=== PATIENT | female | born 2000 | race Caucasian/White ===

== ENCOUNTER 2023-08-23 09:26 | Emergency (ER) | payer BC, SELFPAY ==
[2023-08-23 09:34] VITALS: BP 152/80; PULSE 77; RESP 18; O2SAT 97
--- NOTE | 2023-08-23 09:43 | W.ED.GENAD ---
Discharge Plan Disposition Patient Disposition: Home Discharge Details Clinical Impression: Abnormal vaginal bleeding, Microcytic anemia Primary Care Provider: Unknown,Unknown ED Provider: Manohar Pike Home Meds and New Rx's Prescriptions: New ferrous sulfate [Iron (ferrous sulfate)] 325 mg (65 mg iron) tablet 325 mg PO DAILY Qty: 30 0RF Continued buspirone 7.5 mg Tablet 7.5 mg PO BID Discharge Instructions Instructions: Anemia (ED) Additional Instructions: You were seen in the emergency department for your vaginal bleeding. Your blood counts show that you are mildly anemic. You are receiving a prescription for an iron supplement which you should take as directed. The radiology team also noted a possible polyp versus a blood clot on your ultrasound for which they advise repeating your ultrasound when you are not on your menstrual cycle. This can be arranged through your primary care when you return home. Please return to the emergency department if you do are bleeding more than 1 pad per hour if you pass out or if you have any other concerns. Discharge Data Discharge Date/Time-TO BE ENTERED AT DEPARTURE: 08/23/23 13:45 HPI General Date/Time Provider Initiated Documentation: 08/23/23 09:39. HPI Narrative: HPI This is a 23-year-old female on outpatient medroprogesterone from a primary care provider in [place] now in the ED in the setting of heavy vaginal bleeding. Patient reports that she has had a constant left lower quadrant cramping sensation for the past month. She says that she has had occasional diarrhea. She remotely has had a cholecystectomy. She has not been vomiting but she has been nauseous. She is sexually active with a single male partner. She denies abnormal vaginal discharge dysuria and frequency. No prior history of sexually transmitted infections. No fevers chills chest pain or shortness of breath. No history of PE nor DVT. Bleeding has reportedly improved in the past week on medroprogesterone. Using less than a pad every two hours. Some clots. Attending college in [place], [place]. Exam General: Well-appearing in no acute distress speaking in complete sentences. Head: Normocephalic, atraumatic. Eye: Extraocular eye movements intact. No conjunctival injection. No scleral icterus. Ear, nose, mouth, throat: Grossly normal inspection. Normal voice, handling secretions normally. Neck: Trachea midline. Cardiovascular: Well-perfused distal extremities. Regular rate and rhythm. Respiratory: Nonlabored respiration. Clear lungs bilaterally. Gastrointestinal: Nondistended abdomen. Soft minimal left lower quadrant tenderness. Musculoskeletal: No edema. Moving all 4 extremities spontaneously. Skin: Normal for age and race, grossly normal temperature and turgor. No acute rash. Neurologic: Alert and appropriate, no apparent acute deficits. Psychiatric: Mood and manner are appropriate. Grooming and personal hygiene are appropriate. MDM This is an overall very well-appearing normothermic and not tachycardic 23-year-old female with persistent vaginal bleeding despite outpatient oral hormone use concerning for the possibility of acute blood loss anemia. She also has left lower quadrant tenderness concerning for the possibility of an ovarian cyst. Given her mild pain and overall well appearance my suspicion for ovarian torsion is exceedingly low. However torsion is certainly still a possibility and given concern for cyst will obtain formal transvaginal ultrasound. Will obtain CBC to assess for anemia and send type and screen. No right lower quadrant tenderness to suggest appendicitis and no fevers. Patient has no significant left lower quadrant tenderness making my suspicion for diverticulitis low based on the patient's age so I do not feel that she requires a CT scan. Patient is not recently nor does she have left upper quadrant tenderness to suggest increased risk for splenic arterial aneurysm. No rash to abdomen to suggest zoster. No abnormal vaginal discharge to suggest PID and patient has not been sexually active with any new partners. No dysuria no frequency doubt UTI. No flank pain no history of ureterolithiasis so doubt ureterolithiasis. No fevers to suggest pyleo. Patient denies chance that she could be however will obtain serum hCG to ensure that she does not have an ectopic. 11:18 AM CBC with mild microcytic anemia. Negative hCG. Basic metabolic panel reassuring no prior for comparison. No acute electrolyte abnormalities beyond very mild hyponatremia. No leukocytosis. No thrombocytopenia. 1:32 PM I spoke with Dr. Oseguera from [facility] who reviewed the patient's ultrasound as she was found to have a mass in her endometrial cavity suspicious for a polyp but also possibly consistent with a blood clot. Dr. Oseguera felt that this certainly could represent a blood clot and she agreed with plan for repeat ultrasound in 6 weeks. I will pass along this finding to the patient and give her return indications for any bleeding of more than a pad an hour or any syncope. I wrote her for a course of oral iron supplementation. No significant bleeding reported in the ED. No syncope. Chronic conditions affecting the care of the patient: Heavy periods History obtained from an outside historian: Patient's male partner External record review: No [facility] [place] EMR records Medications: N/A Social determinants of health affecting disposition: N/A Management discussed with: OB and radiology Treatment/interventions considered: N/A Response to therapies provided: N/A Related Data Home Medications Medication Instructions Recorded Confirmed buspirone 7.5 mg tablet 7.5 mg PO BID 08/23/23 08/23/23 ferrous sulfate 325 mg (65 mg 325 mg PO DAILY #30 tabs 08/23/23 iron) tablet (Iron (ferrous sulfate)) Previous Rx's Medication Instructions Recorded ferrous sulfate 325 mg (65 mg 325 mg PO DAILY #30 tabs 08/23/23 iron) tablet (Iron (ferrous sulfate)) Allergies Allergy/AdvReac Type Severity Reaction Status Date / Time No Known Allergies Allergy Unverified 08/23/23 09:37 General Stated Complaint: [facility] [employer] RICK: 3 PFSH All Active Problems (Updated 08/23/23 @ 11:20 by Manohar Pike MD) Abnormal vaginal bleeding (Acute) Microcytic anemia (Acute) Social History Smoking/Tobacco Use Status: Never Smoking risk assessment performed?: Yes Alcohol Intake: current Alcohol Intake frequency: a few times a month Housing: apartment Do you feel safe at home: Yes Do you feel safe in your relationship?: Yes Additional Social history: unable to answer alone Course Vital Signs Vital signs: Vital Signs Pulse 77 08/23/23 09:34 Respiratory Rate 18 08/23/23 09:34 Blood Pressure 152/80 H 08/23/23 09:34 Pulse Oximetry 97 08/23/23 09:34 Pulse 77 08/23/23 09:34 Respiratory Rate 18 08/23/23 09:34 Blood Pressure 152/80 H 08/23/23 09:34 Blood Pressure Position Sitting 08/23/23 09:34 Pulse Oximetry 97 08/23/23 09:34 Oxygen Delivery Method Room Air 08/23/23 09:34 Oxygen Flow Rate 0 08/23/23 09:34 Pain Level 5 08/23/23 09:34
--- NOTE | 2023-08-23 09:45 | DI.US_ITS ---
Exam(s) US PELVIS TRANSVAGINAL EXAM: US PELVIS TRANSVAGINAL CLINICAL HISTORY: Bleeding several weeks. TECHNIQUE: Transabdominal and transvaginal pelvic ultrasound was performed using standard protocol. COMPARISON: No exams were available for comparison FINDINGS: UTERUS: Position: Anteverted. Size: 8.9 x 5.1 x 7.5 cm Endometrium: 0.6 cm. Normal for patient's menstrual status. There is a 1.4 x 0.5 cm hyperechoic mass seen within the endometrial canal. There is a small amount of fluid seen within the endometrial juju l. Myometrium: Unremarkable. Cervix: Unremarkable. OVARIES: The ovaries were not visualized transabdominally or transvaginally. CUL-DE-SAC: Free fluid: None. Other: None. IMPRESSION: 1. 1.4 x 0.5 cm round hyperechoic mass like lesion in the endometrial canal suspicious for polyp. Cl ot could not be entirely excluded in this patient. There is a small amount of fluid seen within the endometrial canal. A follow-up pelvic ultrasound in 6 8 weeks is recommended for re-evaluation. 2. The ovaries cannot be visualized on this examination. 3. Findings were discussed with Dr. Pike at 1:25 p.m. on 08/23/2023. DATA REPOSITORY:
[2023-08-23 10:17] VITALS: TEMP 36.8
[2023-08-23] MEDS: Ondansetron O.D.T. 4 MG TABEF PO (10:17)
[2023-08-23 10:42] LABS: Abs Immature Grans 0.02 10^3/uL (0.0-0.06); Absolute Basophil Count 0.05 10^3/uL (0.0-0.2); Absolute Eosinophil Count 0.19 10^3/uL (0.0-0.7); Absolute Lymphocyte Count 3.28 10^3/uL (1.2-3.4); Absolute Monocyte Count 0.59 10^3/uL (0.1-0.8); Absolute Neutrophil Count 3.71 10^3/uL (1.2-6.7); Basophils % 0.6; Eosinophils % 2.4; HCT 35.8 % (36.0-46.0); HGB 11.1 g/dL (11.2-15.7); Immature Grans % 0.3; Lymphocytes % 41.8; MCH 22.2 pg (27.0-33.0); MCV 72 fL (80-95); MPV 10.3 fL (8.0-11.0); Monocytes % 7.5; Neutrophils % 47.4; Platelet Count 257 10^3/uL (130-400); RBC 5.01 10^6/uL (3.93-5.22); RDW 17.1 % (11.7-14.6); RDW-SD 43.4 fL; WBC 7.84 10^3/uL (4.4-10.8)
[2023-08-23 10:59] LABS: Anion Gap 10.1 mmol/L (3-11); BUN 8 mg/dL (7-18); CO2 22.9 mmol/L (21.0-32.0); CREATININE 0.8 mg/dL (0.55-1.02); Calcium 9.3 mg/dL (8.5-10.1); Chloride 102 mmol/L (98-107); Estimated GFR 107.44 (mL/min/1.73m2); Glucose 103 mg/dL (74-106); Potassium 3.9 mmol/L (3.5-5.1); Sodium 135 mmol/L (136-145)
[2023-08-23 11:08] LABS: Diff Comment RBC Morph Reviewed; Microcytosis 1+
[2023-08-23 11:10] LABS: HCG Qual (Serum) Negative
[2023-08-23 12:24] VITALS: BP 106/90; PULSE 63
== END 2023-08-23 13:45 | disposition home or self-care (01) ==
LOC: ER 14:37
PROVIDERS: Emergency Provider Emergency Medicine
DX: N93.8 Other specified abnormal uterine and vaginal bleeding (principal); D53.9 Nutritional anemia, unspecified
CPT/HCPCS: 36415; 80048; 81025; 86850; 86900; 86901; 99284; 76830; 76856; 84703; 85025; 99283